=== PATIENT | female | born 1945 | race Caucasian/White ===

== ENCOUNTER → 2024-01-28 10:33 | Outpatient (REF) | payer OTHER, SELFPAY | LOC: HWRAD 10:33 | PROVIDERS: ATTENDING PHYSICIAN Family Medicine | DX: R91.8 Other nonspecific abnormal finding of lung field (principal) | CPT/HCPCS: 71250 ==

== ENCOUNTER → 2024-03-26 10:47 | Outpatient (REF) | payer OTHER, SELFPAY | LOC: WDC 10:47 | PROVIDERS: ATTENDING PHYSICIAN Family Medicine | DX: Z12.31 Encounter for screening mammogram for malignant neoplasm of breast (principal) | CPT/HCPCS: 77063; 77067 ==

== ENCOUNTER → 2024-04-24 10:52 | Outpatient (REF) | payer OTHER, SELFPAY | LOC: HWRAD 10:52 | PROVIDERS: ATTENDING PHYSICIAN Family Medicine | DX: M53.3 Sacrococcygeal disorders, not elsewhere classified (principal) | CPT/HCPCS: 72110; 72202 ==

== ENCOUNTER → 2024-06-01 06:35 | Outpatient (REF) | payer OTHER, SELFPAY | LOC: MRI 3T 06:35 | PROVIDERS: ATTENDING PHYSICIAN Pain Medicine Interventional Pain Medicine; FAMILY PHYSICIAN Family Medicine | DX: M54.16 Radiculopathy, lumbar region (principal) | CPT/HCPCS: 72148 ==

== ENCOUNTER → 2025-04-01 11:17 | Outpatient (REF) | payer OTHER, SELFPAY | LOC: WDC 11:17 | PROVIDERS: ATTENDING PHYSICIAN Student in an Organized Health Care Education/Training Program | DX: Z12.31 Encounter for screening mammogram for malignant neoplasm of breast (principal) | CPT/HCPCS: 77063; 77067 ==

== ENCOUNTER → 2025-04-22 12:39 | Outpatient (REF) | payer OTHER, SELFPAY | LOC: RAD 12:39 | PROVIDERS: ATTENDING PHYSICIAN Internal Medicine; FAMILY PHYSICIAN Student in an Organized Health Care Education/Training Program | DX: M81.0 Age-related osteoporosis without current pathological fracture (principal) | CPT/HCPCS: 77080 ==

== ENCOUNTER → 2025-05-11 15:22 | Outpatient (REF) | payer OTHER, SELFPAY | LOC: RAD 15:22 | PROVIDERS: ATTENDING PHYSICIAN Student in an Organized Health Care Education/Training Program | DX: R60.0 Localized edema (principal) | CPT/HCPCS: 73610; 73630; 93971 ==

== ENCOUNTER → 2025-06-07 11:59 | Outpatient (REF) | payer OTHER, SELFPAY | LOC: MRI 11:59 | PROVIDERS: ATTENDING PHYSICIAN Physician Assistant Surgical; FAMILY PHYSICIAN Student in an Organized Health Care Education/Training Program | DX: M25.552 Pain in left hip (principal) | CPT/HCPCS: 72148; 73721 ==

== ENCOUNTER → 2025-07-07 15:16 | Outpatient (REF) | payer OTHER, SELFPAY | LOC: HWRAD 15:16 | PROVIDERS: ATTENDING PHYSICIAN Student in an Organized Health Care Education/Training Program | DX: K83.8 Other specified diseases of biliary tract (principal) | CPT/HCPCS: 76700 ==